=== PATIENT | male | born 1970 | race Caucasian/White ===

== ENCOUNTER 2021-10-07 07:52 | Outpatient (CLI) | payer OTHER | END 2021-10-07 07:56 | disposition home or self-care (01) | LOC: NUCLEAR 07:52 | PROVIDERS: ATTEND General Practice | DX: R07.9 Chest pain, unspecified (principal); E78.00 Pure hypercholesterolemia, unspecified ==

== ENCOUNTER 2021-10-16 11:22 | Outpatient (CLI) | payer OTHER | END 2021-10-16 11:24 | disposition home or self-care (01) | LOC: RAD 11:22 | PROVIDERS: ATTEND Chiropractor | DX: M54.2 Cervicalgia (principal); M54.50 Low back pain, unspecified; M53.3 Sacrococcygeal disorders, not elsewhere classified; M54.9 Dorsalgia, unspecified ==

== ENCOUNTER 2022-03-27 15:49 | Outpatient (CLI) | payer OTHER | END 2022-03-27 15:57 | disposition home or self-care (01) | LOC: RAD 15:49 | DX: M12.542 Traumatic arthropathy, left hand (principal) ==

== ENCOUNTER 2022-04-01 08:07 | Outpatient (CLI) | payer OTHER | END 2022-04-01 08:15 | disposition home or self-care (01) | LOC: SONOGRAMA 08:07 | DX: M12.542 Traumatic arthropathy, left hand (principal) ==